=== PATIENT | female | born 1955 | race Caucasian/White ===

== ENCOUNTER → 2022-05-01 13:39 | Outpatient (CLI) | payer MEDICARE, OTHER, SELFPAY ==
--- NOTE | 2022-05-01 | DI.MRI.S_ITS ---
PROCEDURE: MR LUMBAR SPINE WO CON INDICATIONS: Radiculopathy, lumbar region TECHNIQUE: Noncontrast sagittal T1 spin echo and T2 fast echo, sagittal STIR, and T2 fast spin echo through the lumbar spine. In cases with scoliosis, additional coronal T2 fast spin echo may be performed. COMPARISON: [facility], RF, LUMBAR FACET, 05/11/2020, 11:16. [facility], CR, XR LUMBAR SPINE 2 OR 3 VIEWS, 12/29/2019, 13:30. [facility], CR, XR LUMBAR SPINE WITH OLBIQUES PLUS FLEXION EXTENSION, 02/15/2020, 11:48. FINDINGS: Image quality: This examination is limited by involuntary motion artifact. Alignment and Curvature: There is at least moderate dextroconvex lumbar scoliosis. There is minimal retrolisthesis seen at L1-L2, with mild retrolisthesis seen at L2-L3, L3-L4, and L4-L5. Minimal retrolisthesis can be seen at L5-S1. Bone Marrow: Marrow is of normal overall signal. No acute vertebral body compression fractures. Spinal Cord: Conus medullaris terminates at the L1 level. Visualized cord demonstrates normal signal and size. Paraspinous Soft Tissues: No paravertebral masses. T12-L1: The disc height is well-preserved. Loss of disc signal is seen at this level. No significant neural foraminal or central canal narrowing can be seen. L1-L2: Cexn-ha-aicdndhs loss of disc height and disc signal can be seen on the right side. Mild to moderate disc bulge is seen at this level. Moderate bilateral neural foraminal narrowing can be seen, left worse than right. Mild central canal narrowing is seen. L2-L3: At least moderate loss of disc height and disc signal can be seen. Reactive marrow endplate changes are seen, which are hyperintense on T1-weighted and T2-weighted imaging and most consistent with fatty metaplasia (Modic type II changes). Mild to moderate disc bulge is seen. Mild facet joint hypertrophy is seen. There is moderate to severe left-sided and minimal right-sided neural foraminal narrowing. Moderate central canal narrowing is seen. L3-L4: Moderate to severe loss of disc height and disc signal can be seen. Reactive marrow endplate changes are seen, which are hyperintense on T1-weighted and T2-weighted imaging and most consistent with fatty metaplasia (Modic type II changes). At least moderate disc bulge is seen, which is eccentric to the left. Moderate facet joint hypertrophy is seen. There is iwan-[id number]-miqsvhrg right-sided and at least moderate left-sided neural foraminal narrowing. There is a mild degree of compression seen upon the exiting left L3 nerve root. Moderate central canal narrowing is seen. L4-L5: There is moderate to severe loss of disc height and disc signal seen on the left. At least moderate disc bulge is seen. Posteriorly projected endplate osteophytes are seen. At least moderate facet hypertrophy is seen. There is moderate to severe bilateral neural foraminal narrowing seen, left worse than right. There is a degree of compression seen upon the exiting nerve roots. At least moderate central canal narrowing is seen. L5-S1: Moderate loss of disc height is seen. Loss of disc signal is seen. Reactive marrow endplate changes are seen, which are hyperintense on T1-weighted and T2-weighted imaging and most consistent with fatty metaplasia (Modic type II changes). Moderate disc bulge is seen, which is eccentric to the right side. There is bxxe-ry-[id number] right-sided and mild left-sided facet hypertrophy. There is moderate to severe bilateral neural foraminal narrowing seen. There is a degree of compression seen upon the exiting nerve roots. Minimal central canal narrowing is seen. IMPRESSION: Dextroconvex lumbar scoliosis and multiple levels of relatively prominent lumbar spine degenerative change seen. Dictated by: Matthew Wolf M.D. on 05/01/2022 at 14:12 Approved by: Matthew Wolf M.D. on 05/01/2022 at 14:16
== END ==
PROVIDERS: PCP Internal Medicine; Referring Provider Internal Medicine; Visit Provider Internal Medicine
DX: M47.26 Other spondylosis with radiculopathy, lumbar region; M47.27 Other spondylosis with radiculopathy, lumbosacral region; M41.86 Other forms of scoliosis, lumbar region
CPT/HCPCS: 72148

== ENCOUNTER → 2022-05-27 10:11 | Outpatient (CLI) | payer MEDICARE, OTHER, SELFPAY ==
[2022-05-27 11:03] LABS: COVID19 -Nasal RAPID Negative (Negative)
--- NOTE | 2022-05-28 20:24 | DI.NM.S_ITS ---
DATE OF SERVICE: 05/27/2022 PROCEDURE: Intravenous Lexiscan perfusion study. INDICATION: Chest pain, shortness of breath, underlying hypertension, hyperlipidemia, DM and CAD. RADIOPHARMACEUTICAL: 25.8 millicurie technetium-99m Myoview IV was injected at stress and 25.9 millicurie technetium-99m Myoview IV was injected at rest. CARDIAC STRESS: The patient underwent IV Lexiscan perfusion study under the supervision of an attending staff. She remained hemodynamically stable. Baseline rhythm was sinus. During stress, no convincing ischemic changes seen. Rare PVCs. The patient had mild chest tightness, which got resolved in recovery. Also, had minimal dyspnea. Baseline blood pressure was 132/80 mmHg. RAW DATA: There is breast shadow seen. GATED STUDY: Stress LV ejection fraction 73 percent without any obvious wall motion abnormalities. Resting end-diastolic volume 93 mL. TID ratio 0.97, which is within normal limits. Lung/heart ratio 0.35, which is within normal limits. MYOCARDIAL PERFUSION SCAN: Stress supine and resting supine images were compared to each other. There are no stress prone images. There appears to be minimally decreased perfusion of distal anteroseptum, which is kind of fixed. No reversible ischemia. CONCLUSION: I will call this study likely a normal myocardial perfusion study without any convincing ischemia or infarction pattern. Large breast shadow seen during raw images, likely responsible for this minimally decreased perfusion of distal anteroseptum. Left ventricular function is preserved. No obvious wall motion abnormalities. Overall low-risk myocardial perfusion scan. There were no stress prone images. Charleen Lacy - PATTI/joseph/valente doc#: [id number]/job#: [id number] dd: 05/28/2022 17:06:00 dt: 05/28/2022 20:12:00 DICTATING MD/COPIES TO: Yancy Bryant MD COPIES MNE: MAYO;
== END ==
PROVIDERS: Internal Medicine Cardiovascular Disease; PCP Internal Medicine; Referring Provider Internal Medicine; Visit Provider Internal Medicine
DX: R07.89 Other chest pain (principal); Z20.822 Contact with and (suspected) exposure to COVID-19
CPT/HCPCS: 78452; 87635; 93017; A9502; J2785